=== PATIENT | female | born 1970 | race Caucasian/White ===

== ENCOUNTER 2017-09-22 09:23 | Day surgery (SDC) | payer OTHER ==
[2017-09-22] MEDS: ACETYLCHOLINE OPHTH SOLN 1% 2ML (MIOCHOL-E) As Ordered (07:08)
[~2017-09-22 09:23] MED LIST: ACETAMINOPHEN 325 MG TAB PO; AcetaZOLAMIDE 500MG INJECTION (J1120) IV; MANNITOL 20% BAG 250 ML IV; PHENYLEPHRINE HCL 10 % OPHTH. SOL 5ML OS; PROPARACAINE 0.5% OPHTH SOL 15ML OS
[2017-09-22] MEDS: LIDOCAINE 3.5 % 1ML OPHTH TOPICAL GEL OU (10:08)
[2017-09-22] MEDS: TROPICAMIDE 1% OPHTH SOLN 2ML OS (10:09)
[2017-09-22] MEDS: OFLOXACIN 0.3 % (OCUFLOX) OPTH SOL 5ML OS (10:09)
[2017-09-22] MEDS: CYCLOPENTOLATE 2% OPHTH SOLN 2ML BTL OS (10:09)
[2017-09-22] MEDS: PHENYLEPHRINE 2.5% OPHTH SOL 2ML OS (10:09)
[2017-09-22] MEDS ORDERED: fentaNYL 100 MCG/2 ML INJECTION (J3010) As Ordered (12:11)
[2017-09-22] MEDS ORDERED: MIDAZOLAM INJ 2 MG/2 ML VIAL (J2250) As Ordered (12:11)
[2017-09-22] MEDS: POVIDONE-IODINE 5% OPHTH PREP SOL 30ML As Ordered (12:27)
[2017-09-22] MEDS: LIDOCAINE 1% SDV 5 ML VIAL As Ordered (12:31)
[2017-09-22] MEDS: HEALON DUET (HEALON 10MG/ML 0.55ML & HEALON ENDOCOAT 30MG/ML 0.85ML) As Ordered (12:39)
[2017-09-22] MEDS: CEFUROXIME 1MG/0.1ML INTRACAMERAL INJ As Ordered (12:39)
[2017-09-22] MEDS: BALANCED SALT IRRIGATION SOLUTION 500ML BAG (FOR OR EYE MACHINE) As Ordered (12:39)
[2017-09-22] MEDS ORDERED: TRIMETHOBENZAMIDE 300 MG CAP PO (13:00)
[2017-09-22] MEDS: AcetaZOLAMIDE 500 MG ER CAP PO (13:01)
== END 2017-09-22 13:08 | disposition home or self-care (01) ==
LOC: M SDC 09:23
DX: H25.12 Age-related nuclear cataract, left eye (principal); I10 Essential (primary) hypertension; J44.9 Chronic obstructive pulmonary disease, unspecified; Z88.8 Allergy status to other drugs, medicaments and biological substances; Z79.51 Long term (current) use of inhaled steroids; Z79.899 Other long term (current) drug therapy
CPT/HCPCS: 66984